=== PATIENT | female | born 1955 | race Caucasian/White ===

== ENCOUNTER → 2017-01-21 | Outpatient (CLI) | payer OTHER ==
[~2017-01-21] MED LIST: ESTRADIOL0.5 MG PO; LEVOTHYROXIN0.175 MG PO; LEVOTHYROXINE0.15 MG PO; MEDROXYPROGEST2.5 MG PO; PHENERGAN 25MG.25 M1 PO; POTASSIUM CHLO10 ME3 PO; VITAMIN D31000 IU PO
--- NOTE | 2017-01-22 07:24 | RADIOLOGY REPORT PS360 ---
FOOT-LT-3 VIEWS HISTORY: Left lateral foot pain status post injury LEFT FOOT PAIN ORDERING PHYSICIAN: Rajeev Collier MD PATIENT AGE: 61 years COMPARISON: None FINDINGS: No fracture or dislocation. No lytic or blastic change. There is normal mineralization.. The joint spaces are well-preserved. No significant degenerative/arthritic changes. No erosive changes evident. IMPRESSION: Negative left foot, no acute finding
== END ==
LOC: RAD 16:26
DX: M79.672 Pain in left foot (principal)

== ENCOUNTER → 2017-09-12 | Outpatient (CLI) | payer OTHER ==
--- NOTE | 2017-09-12 14:17 | RADIOLOGY REPORT PS360 ---
EXAM: Barium swallow/esophagram. INDICATION: Dysphasia, coughing after eating ORDERING PHYSICIAN: Jose Alejandro Epps MD PATIENT AGE: 62 years COMPARISON: None TECHNIQUE: In the upright position the patient was observed to swallow barium in both the AP and lateral view. The cervical esophagus was examined under fluoroscopy with images obtained. The patient was then placed prone in the right anterior oblique position and was observed to swallow barium with Valsalva technique . FLUOROSCOPY TIME: 52 seconds FINDINGS: There was no evidence of aspiration. There was normal peristalsis. No filling defects or mucosal abnormalities. No masses or strictures. No evidence of hiatal hernia or reflux. The esophagus is midline. No evidence of esophageal deviation or extrinsic mass effect. IMPRESSION: Negative barium swallow.
--- NOTE | 2017-09-12 14:22 | RADIOLOGY REPORT PS360 ---
CHEST(2 VIEWS-NOT PORTABLE) HISTORY: DYSPHAGIA ORDERING PHYSICIAN: Jose Alejandro Epps MD PATIENT AGE: 62 years COMPARISON: None available FINDINGS: Unremarkable cardiovascular structures. On the lateral view there is increased density along the inferior aspect of the anterior clear space. This may be related to a pericardial fat-pad however, this is not readily apparent on the previous radiograph of 02/05/2015. No other significant anomalies are evident. No acute bony anomalies. The trachea is midline. IMPRESSION: 1. No acute finding. 2. Probable anterior pericardial fat pad. Center follow-up to confirm stability
--- NOTE | 2017-09-12 15:39 | RADIOLOGY REPORT PS360 ---
US THYROID HISTORY: DYSPHAGIA ORDERING PHYSICIAN: Jose Alejandro Epps MD PATIENT AGE: 62 years COMPARISON: 08/20/2012 FINDINGS: There has been prior thyroidectomy. No residual thyroid tissue or nodules apparent IMPRESSION: Prior thyroidectomy. No nodules evident within the thyroid bed
== END ==
LOC: RAD 10:00
DX: R13.10 Dysphagia, unspecified (principal)